=== PATIENT | male | born 1970 | race Caucasian/White ===

== ENCOUNTER 2022-11-11 07:19 | Day surgery (SDC) | payer BC, OTHER ==
[2022-11-11] MEDS ORDERED: Ringers Lactate 1,000 ML IV ONE ×2 (07:47→12:07)
[2022-11-11] MEDS ORDERED: ONDANSETRON 4 MG/2 ML VIAL ONE (09:14)
[2022-11-11] MEDS ORDERED: dexAMETHasone 10 MG/ML VIAL ONE (09:14)
[2022-11-11] MEDS ORDERED: ROCURONIUM 50 MG/5 ML VIAL IV ONE (09:14)
[2022-11-11] MEDS ORDERED: MIDAZOLAM HCL 2 MG/2 ML INJ ONE (09:14)
[2022-11-11] MEDS ORDERED: FENTANYL CITR 100 MCG/2 ML ONE (09:14)
[2022-11-11] MEDS ORDERED: LIDOCAINE 2% MPF 5 ML VIAL ONE (09:14)
[2022-11-11] MEDS ORDERED: propofoL 200 MG/20 ML VIAL IV ONE (09:14)
[2022-11-11] MEDS ORDERED: NA CHLORIDE 0.9% 1,000 ML ONE (09:33)
[2022-11-11] MEDS: OXYMETAZOLINE HCL 0.05% 15ML NAS ONE ×3 (10:03→10:57)
[2022-11-11] MEDS: LIDOCAINE HCL/EPINEPHRINE 20 ML MDV ONE ×3 (10:03→10:57)
[2022-11-11] MEDS ORDERED: BACITRACIN OINTMENT 14 GM TUBE TOP ONE (12:01)
[2022-11-11] MEDS ORDERED: CEFAZOLIN SODIUM 1 GM/VIAL ONE (12:27)
[2022-11-11] MEDS: HYDROMORPHONE HCL 1 MG/ML INJ ONE ×2 (12:58→13:05)
[2022-11-11] MEDS ORDERED: HYDROMORPHONE HCL 1 MG/ML INJ ONE (13:28)
[2022-11-11] MEDS ORDERED: HYDROCODONE/APAP 7.5/325 MG TAB ONE (14:47)
[2022-11-11 15:07] VITALS: BP 141/89; TEMP 97.9; O2SAT 98
--- NOTE | 2022-11-12 13:35 | OP ---
Date of Procedure: 11/11/2022 Surgeon: AURELIA SARABIA Preoperative Diagnoses: 1.Nasal septal deviation. 2.Bilateral inferior turbinate hypertrophy. 3.Chronic rhinitis. Postoperative Diagnoses: 1.Nasal septal deviation. 2.Bilateral inferior turbinate hypertrophy. 3.Chronic rhinitis. Procedures: 1.Bilateral nasal endoscopy. 2.Septoplasty. 3.Bilateral submucosal ablation with radiofrequency Coblation wand. 4.Bilateral ClariFix cryo destruction of posterior nasal nerves. Anesthesia: General endotracheal anesthesia was administered. I also infiltrated approximately 10 t o 12 mL of 1% lidocaine with 1:100,000 epinephrine into the mucosa of bilateral inferior turbinates, uncinate process and anterior face of middle turbinates and bilateral septal mucosa. Afrin-soaked na jamel pledgets were used for vasoconstriction and decongestion. Estimated Blood Loss: Approximately 15 to 20 mL. Findings: Right greater than left nasal septal deviation with moderate superior septal deviation not ed, right caudal septum involving predominantly cartilage in left maxillary crest and vomer deviation , mild to moderate; bilateral inferior turbinate hypertrophy 3/4 and bilateral posterior rhinorrhea. Complications: None. Disposition: Stable. The patient tolerated the procedure well. Indication For Procedure: Patient is a pleasant 52-year-old male who presented to my outpatient clin ic with chronic nasal obstruction secondary to deviated septum and inferior turbinate hypertrophy. H e also complained of chronic postnasal drip and rhinorrhea that has been refractory to decongestion a nd antihistamines. These are indications to bring the patient to the operative suite for the above-m entioned procedures. He understood. All questions were answered. Risks versus benefits and complic ations were explained in detail and a consent form was signed which was placed in the chart. CT scan also demonstrated deviation of the septum and inferior turbinate hypertrophy. Description Of Procedure: Patient was transferred from the preoperative holding area to the operativ e suite by Department of Anesthesia, placed on the operating table supine, sedated and intubated in n ormal fashion. Table was rotated to 180 degrees and a head rest was placed. I infiltrated bilateral intranasal mucosa with 10 to 12 mL of 1% lidocaine with 1:100,000 epinephrine as more specifically b ilateral inferior turbinate mucosa, septal mucosa, and uncinate process and middle turbinate mucosa. The patient was then sterilely prepped and draped. Afrin-soaked nasal pledgets were introduced into the nasal cavity. The pledgets were removed. The endoscope was advanced along the floor of bilateral nasal cavities. We started with the cryo destruction of the posterior nasal nerves by using the [employer] cryo destruc tion device. I inserted to the left side and advanced it to the attachment of the posterior middle t urbinates and lateral nasal wall and I picked 2 spots for cryo destruction and cryo destruction was p erformed 30 seconds at both sites. Then the wand was removed. This was repeated on the right side w hereby I advanced it posteriorly to where the middle turbinate was attached to the lateral nasal wall and I picked 2 spots for cryo destruction. It was held in place at each area for 30 seconds. The w and was then removed and my attention was placed to the septal wall. I made a modified Fernando incis ion with a #15 blade scalpel down to perichondrium and elevated the mucosa off the cartilaginous sept um with a [place] elevator. I then made a crossover incision with a #15 blade scalpel and elevated the right septal mucosa off the obstructive cartilage. Patient had very thin mucosa and he had a cartil aginous step-off to suggest a prior fracture of the septum. The obstructive cartilage and bone were removed with a [place] elevator, scalpel, and Aisha forceps. Once the obstructive pieces were job mechelle, I then reapproximated the septal mucosa with 4-0 plain gut suture in a box like fashion. I then reapproximated the mucosal edges with 4-0 plain gut suture in a continuous running fashion. Next, attention was placed to the inferior turbinates. The mucosa was entered with the Coblation wan d and advanced posteriorly. Submucous pockets were created with the wand and I performed 7 for ablat ion and 3 for coagulation of bilateral inferior turbinates. The wand was removed. Surgifoam was ins erted into bilateral nasal cavities, followed by antibiotic coated Mena splints and the Mena splint s were sutured at the caudal septum with a 2-0 Prolene suture. A mustache dressing was placed. He t olerated the procedure well and will be discharged to home on antibiotic and analgesic medication and will follow up at 10 days or sooner if needed. KD/MODL Voice ID: [id number] Report ID: [id number]
== END 2022-11-11 15:06 | disposition home or self-care (01) ==
LOC: OR 07:19
PROVIDERS: ATTEND Otolaryngology Facial Plastic Surgery
PROC: 095P8ZZ Destruction of Accessory Sinus, Via Natural or Artificial Opening Endoscopic (ICD-10-PCS; 2022-11-11)
PROC: 09SM4ZZ Reposition Nasal Septum, Percutaneous Endoscopic Approach (ICD-10-PCS; 2022-11-11)
PROC: 09BL7ZZ Excision of Nasal Turbinate, Via Natural or Artificial Opening (ICD-10-PCS; principal; 2022-11-11 09:30)
DX: J34.2 Deviated nasal septum (principal); J31.0 Chronic rhinitis; J34.3 Hypertrophy of nasal turbinates
CPT/HCPCS: 88300; C2618; J0690; J1100; J1170; J2001; J2250; J2405; J2704; J3010; J7040; J7120

== ENCOUNTER 2023-09-27 06:32 | Emergency (ER) | payer OTHER ==
[2023-09-27] MEDS ORDERED: ONDANSETRON 4 MG/2 ML VIAL ONE (06:57)
[2023-09-27] MEDS ORDERED: HYDROMORPHONE HCL 1 MG/ML INJ ONE (07:08)
[2023-09-27 07:14] LABS: Urine Bilirubin NEGATIVE (Negative); Urine Blood Negative (Negative); Urine Clarity Clear (Clear); Urine Color Light-Yellow (Yellow); Urine Glucose NEGATIVE (Negative); Urine Ketones NEGATIVE (Negative); Urine Microscopic Reflex YN NO UMIC; Urine Nitrite NEGATIVE (Negative); Urine Protein NEGATIVE (Negative); Urine Urobilinogen Normal (Normal); Urine pH 6.5 (5.0-7.0)
[2023-09-27 07:19] LABS: Absolute Eosinophils 0.2 K/uL (0-0.5); Absolute Lymphocytes (CBC) 2.2 K/uL (0.7-4.9); Absolute Monocytes 0.7 K/uL (0.1-1.3); Absolute Neutrophil 3.2 K/uL (1.8-8.0); Basophils % 0.7 % (0-1.3); Eosinophils % 2.9 % (0-4.4); Hematocrit 40.3 % (39.6-49.0); Hemoglobin 13.8 g/dL (13.6-17.9); Lymphocytes % 34.8 % (15.3-44.8); MCH 29.1 pg (27.0-35.0); MCHC 34.3 g/dL (32.0-36.0); MCV 84.8 fL (80-100); Monocytes % 10.8 % (3.3-12.3); Neutrophils % 50.8 % (41.7-73.7); Nucleated Red Blood Cells % 0.1 % (0-0); Platelets 243 thou/uL (152-406); RBC Red Blood Cell Count 4.75 M/uL (4.33-5.43); Red Cell Distribution Width 13.4 % (12.1-15.2)
[2023-09-27 07:21] LABS: Albumin 3.9 g/dL (3.4-5.0); Albumin/Globulin Ratio 1.4 (1.1-1.8); Anion Gap 4.6 mEq/L (5.0-15.0); Bilirubin Total 0.4 mg/dL (0.2-1.0); Globulin 2.8 g/dL (2.3-3.5); Potassium 3.6 mEq/L (3.5-5.1); Protein, Total 6.7 g/dL (6.4-8.2)
--- NOTE | 2023-09-27 07:47 | RAD REPORT ---
EXAM DESCRIPTION: CTAbdomen Pelvis W Contrast - 09/27/2023 7:37 am CLINICAL HISTORY: ABD PAIN COMPARISON: No comparisons TECHNIQUE: CT of the abdomen and pelvis was performed with IV contrast. All CT scans are performed using dose optimization technique as appropriate and may include automated exposure control or mA/KV adjustment according to patient size. FINDINGS: Lower chest: Fluid in the distal esophagus. Liver: No acute abnormality or suspicious lesions. Biliary: No biliary ductal dilatation. Stomach: No significant focal abnormality. Duodenum: No significant focal abnormality. Pancreas: No significant abnormality. Spleen: No significant abnormality. Adrenal: No suspicious lesions. Kidney/ureter: No hydronephrosis. No renal calculi. Too small to characterize and/or benign appearing renal lesions are noted. Retroperitoneum: No retroperitoneal adenopathy. Vascular: No aneurysm. Bowel: No significant focal abnormality. Peritoneum: No ascites or free air. Fat containing inguinal hernias. Small fat containing umbilical h ernia. Bladder: Grossly unremarkable. Reproductive: No adnexal masses. Bones: No acute fracture. Mild disc height loss L5-S1. Other: n/a IMPRESSION: No acute intra-abdominal or pelvic finding.
--- NOTE | 2023-09-27 07:56 | ER ---
Nurse's Notes [facility] Name: Jamal Ram Jr Age: 53 yrs Sex: Male : 1970 Arrival Date: 09/27/2023 Time: 06:32 Bed 20 Private MD: Diagnosis: Abdominal pain, unspecified Presentation: 09/26 06:41 Chief complaint: Patient states: I have been having abdominal bloating and back pain ha1 for about a week. 06:41 Coronavirus screen: Vaccine status: Patient reports receiving the 2nd dose of the covid ha1 vaccine. Moderna. Ebola Screen: No symptoms or risks identified at this time. Initial Sepsis Screen: Does the patient meet any 2 criteria? No. Patient's initial sepsis screen is negative. Does the patient have a suspected source of infection? No. Patient's initial sepsis screen is negative. Risk Assessment: Do you want to hurt yourself or someone else? Patient reports no desire to harm self or others. Onset of symptoms was September 27, 2023. 06:41 Method Of Arrival: Ambulatory ha1 06:41 Acuity: ELIUD 3 ha1 Triage Assessment: 06:41 General: Appears uncomfortable, Behavior is calm, cooperative. Pain: Complains of pain ha1 in back Pain does not radiate. Pain currently is 7 out of 10 on a pain scale. Quality of pain is described as pressure, throbbing. Neuro: Level of Consciousness is awake, alert, obeys commands, Oriented to person, place, time, situation. Cardiovascular: Capillary refill < 3 seconds Patient's skin is warm and dry. Respiratory: Airway is patent Respiratory effort is even, unlabored, Respiratory pattern is regular, symmetrical. GI: Abdomen is round distended, obese, Bowel sounds present X 4 quads. Reports bloating, nausea. : No signs and/or symptoms were reported regarding the genitourinary system. Derm: Skin is pink, warm \T\ dry. Musculoskeletal: Circulation, motion, and sensation intact. Range of motion: intact in all extremities, Reports pain in back. Historical: - Allergies: 06:55 Codeine; ha1 06:55 Tape; ha1 - PMHx: 06:55 Kidney stone; Asthma; ha1 - PSHx: 06:55 right knee surgery; ha1 - Immunization history:: Adult Immunizations unknown. - Infectious Disease History:: Denies. - Social history:: Smoking status: Patient denies any tobacco usage or history of. Screenin:58 Abuse screen: Denies threats or abuse. Denies injuries from another. Nutritional ha1 screening: No deficits noted. Tuberculosis screening: No symptoms or risk factors identified. 07:15 [facility] ED Fall Risk Assessment (Adult) History of falling in the last 3 months, kc6 including since admission No falls in past 3 months (0 pts) Confusion or Disorientation No (0 pts) Intoxicated or Sedated No (0 pts) Impaired Gait No (0 pts) Mobility Assist Device Used No (0 pt) Altered Elimination No (0 pt) Score/Fall Risk Level 0 - 2 = Low Risk. Assessment: 07:15 General: Appears in no apparent distress. comfortable, well groomed, well developed, kc6 Behavior is calm, cooperative, appropriate for age. Pain: Complains of pain in suprapubic area and right lower quadrant and back Pain currently is 7 out of 10 on a pain scale. at worst was 9 out of 10 on a pain scale. Neuro: Level of Consciousness is awake, alert, obeys commands, Oriented to person, place, time, situation, Appropriate for age. Cardiovascular: Denies chest pain, Capillary refill < 3 seconds. Respiratory: Airway is patent Trachea midline Respiratory effort is even, unlabored, Respiratory pattern is regular, symmetrical, Denies shortness of breath. GI: Abdomen is round Bowel sounds present X 4 quads. Abd is soft X 4 quads Abdomen is tender to palpation in suprapubic area and right lower quadrant Reports lower abdominal pain, Patient currently denies diarrhea, nausea, vomiting. : No signs and/or symptoms were reported regarding the genitourinary system. Urine is clear. EENT: No signs and/or symptoms were reported regarding the EENT system. Derm: No signs and/or symptoms reported regarding the dermatologic system. Skin is intact, is healthy with good turgor, Skin is pink, warm \T\ dry. Musculoskeletal: No signs and/or symptoms reported regarding the musculoskeletal system. Circulation, motion, and sensation intact. Capillary refill < 3 seconds, Range of motion: intact in all extremities. 08:15 Reassessment: Patient appears in no apparent distress at this time. No changes from kc6 previously documented assessment. Patient and/or family updated on plan of care and expected duration. Pain level reassessed. Patient is alert, oriented x 3, equal unlabored respirations, skin warm/dry/pink. Patient states feeling better. Patient states symptoms have improved. Vital Signs: 06:41 BP 166 / 92; Pulse 68; Resp 17 S; Temp 98.2(T); Pulse Ox 96% on R/A; Weight 108.86 kg; ha1 Height 5 ft. 8 in. ; 07:29 BP 154 / 101; Pulse 66; Resp 16 S; Pulse Ox 92% on R/A; kc6 06:41 Body Mass Index 36.49 (108.86 kg, 172.72 cm) ha1 ED Course: 06:34 Patient arrived in ED. mr 06:36 Yung Mccrary MD is Attending Physician. sp4 06:41 Patient has correct armband on for positive identification. Bed in low position. Call ha1 light in reach. Side rails up X 1. 06:55 Triage completed. ha1 06:59 Attending Physician role handed off by Yung Mccrary MD sp3 06:59 Judy Donahue MD is Attending Physician. sp3 06:59 CBC with Diff Sent. ha1 06:59 Inserted saline lock: 20 gauge in right antecubital area, using aseptic technique. oe Blood collected. 07:00 CMP Sent. ha1 07:00 Lipase Sent. ha1 07:00 Report received from Arielle Tobar RN. kc6 07:00 Pulse ox on. NIBP on. Warm blanket given. Pillow given. kc6 07:00 Arm band placed on. kc6 07:06 Brissa Meyer, DARNELL is Primary Nurse. kc6 07:26 Door closed. Noise minimized. Lights dimmed. kc6 07:37 CT Abd/Pelvis - IV Contrast Only In Process Unspecified. EDMS 08:32 No provider procedures requiring assistance completed. IV discontinued, intact, kc6 bleeding controlled, No redness/swelling at site. Pressure dressing applied. 08:32 Provided Education on: do not drive or operate heavy machinery for x4hrs. kc6 Administered Medications: 07:15 Drug: Ondansetron IVP 4 mg IVP once; over 2 minutes Route: IVP; Site: right antecubital;kc6 07:26 Follow up: Response: No adverse reaction kc6 07:15 Drug: HYDROmorphone IVP 1 mg IVP once Route: IVP; Site: right antecubital; kc6 07:25 Follow up: Response: No adverse reaction; Pain is decreased; RASS: Alert and Calm (0) kc6 Medication: 08:32 VIS not applicable for this client. kc6 Outcome: 07:56 Discharge ordered by . sp3 08:32 Discharged to home ambulatory, kc6 08:32 Condition: improved 08:32 Discharge instructions given to patient, Instructed on discharge instructions, follow up and referral plans. no driving heavy equipment, Demonstrated understanding of instructions, follow-up care, 08:33 Patient left the ED. kc6 Signatures: Dispatcher [employer] EDMS Sara Donohue, Vincent Reg mr Valladares, Judy Guy MD MD sp3 Arielle Tobar RN RN [email or web address] Brissa Meyer RN RN kc6 Yung Mccrary MD MD sp4
--- NOTE | 2023-09-27 07:56 | EDPHYS ---
Physician Documentation [facility] Name: Jamal Ram Jr Age: 53 yrs Sex: Male : 1970 Arrival Date: 09/27/2023 Time: 06:32 Bed 20 Private MD: ED Physician Judy Donahue HPI: 09/26 06:36 This 53 yrs old Male presents to ER via Unassigned with complaints of sp3 Abdominal Swelling, Abdominal Pain, Back Pain. 06:36 53-year-old male with a history of kidney stones and asthma presents with low back pain sp3 and anterior abdominal pain and swelling acute on chronic for approximately 10 days. Patient states symptoms have been worse over the last 2 days. He denies any trauma, muscle strain or other strenuous exercise. He also denies headache, fever, URI symptoms, chest pain, shortness of breath, back pain, epigastric pain, syncope, near syncope, neurological deficit, rash, travel history, known sick contacts, dysuria, gross hematuria, any other signs or symptoms on ROS at this time. He denies any abdominal surgeries. No family history of aortic aneurysm or dissection reported.. Historical: - Allergies: 06:55 Codeine; ha1 06:55 Tape; ha1 - PMHx: 06:55 Kidney stone; Asthma; ha1 - PSHx: 06:55 right knee surgery; ha1 - Immunization history:: Adult Immunizations unknown. - Infectious Disease History:: Denies. - Social history:: Smoking status: Patient denies any tobacco usage or history of. ROS: 07:22 Constitutional: Negative for fever, chills, and weight loss, Eyes: Negative for injury, sp3 pain, redness, and discharge, ENT: Negative for injury, pain, and discharge, Neck: Negative for injury, pain, and swelling, Cardiovascular: Negative for chest pain, palpitations, and edema, Respiratory: Negative for shortness of breath, cough, wheezing, and pleuritic chest pain, : Negative for injury, bleeding, discharge, and swelling, MS/Extremity: Negative for injury and deformity, Skin: Negative for injury, rash, and discoloration, Neuro: Negative for headache, weakness, numbness, tingling, and seizure, Psych: Negative for depression, anxiety, suicide ideation, homicidal ideation, and hallucinations, Allergy/Immunology: Negative for hives, rash, and allergies, Endocrine: Negative for neck swelling, polydipsia, polyuria, polyphagia, and marked weight changes, Hematologic/Lymphatic: Negative for swollen nodes, abnormal bleeding, and unusual bruising, 07:22 All other systems are negative, Exam: 07:22 Constitutional: This is a well developed, well nourished patient who is awake, alert, sp3 and in no acute distress. Head/Face: Normocephalic, atraumatic. Eyes: Pupils equal round and reactive to light, extra-ocular motions intact. Lids and lashes normal. Conjunctiva and sclera are non-icteric and not injected. Cornea within normal limits. Periorbital areas with no swelling, redness, or edema. ENT: Nares patent. No nasal discharge, no septal abnormalities noted. External auditory canals are clear. Oropharynx with no redness, swelling, or masses, exudates, or evidence of obstruction, uvula midline. Mucous membranes moist. Neck: Trachea midline, no thyromegaly or masses palpated, and no cervical lymphadenopathy. Supple, full range of motion without nuchal rigidity, or vertebral point tenderness. No Meningismus. Chest/axilla: Normal chest wall appearance and motion. Nontender with no deformity. No lesions are appreciated. Cardiovascular: Regular rate and rhythm with a normal S1 and S2. No gallops, murmurs, or rubs. Normal PMI, no JVD. No pulse deficits. Respiratory: Lungs have equal breath sounds bilaterally, clear to auscultation and percussion. No rales, rhonchi or wheezes noted. No increased work of breathing, no retractions or nasal flaring. Skin: Warm, dry with normal turgor. Normal color with no rashes, no lesions, and no evidence of cellulitis. MS/ Extremity: Pulses equal, no cyanosis. Neurovascular intact. Full, normal range of motion. Neuro: Awake and alert, GCS 15, oriented to person, place, time, and situation. Cranial nerves II-XII grossly intact. Motor strength 5/5 in all extremities. Sensory grossly intact. Cerebellar exam normal. Normal gait. Psych: Awake, alert, with orientation to person, place and time. Behavior, mood, and affect are within normal limits. 07:22 Abdomen/GI: Diffuse mild lower abdominal pain to palpation without peritoneal signs, rebound or guarding. No pain to palpation along the musculature or spine of the back. Nonsurgical abdomen., Vital Signs: 06:41 BP 166 / 92; Pulse 68; Resp 17 S; Temp 98.2(T); Pulse Ox 96% on R/A; Weight 108.86 kg; ha1 Height 5 ft. 8 in. ; 07:29 BP 154 / 101; Pulse 66; Resp 16 S; Pulse Ox 92% on R/A; kc6 06:41 Body Mass Index 36.49 (108.86 kg, 172.72 cm) ha1 MDM: 06:37 Patient medically screened. sp4 07:23 Data reviewed: vital signs, nurses notes, lab test result(s), radiologic studies. ED sp3 course: 53-year-old male with PMH above now with lower abdominal pain and low back pain. Differential diagnosis is broad and includes UTI/pyelonephritis spectrum, kidney stone, appendicitis, colitis, aortic pathology, musculoskeletal, among others. I am not highly suspicious of sepsis and/or shock. Workup will include CT scan of the abdomen pelvis, laboratory values, UA and general supportive care. Dilaudid and Zofran for pain control with disposition pending workup and patient course.. 07:55 ED course: Full workup negative including CT. Patient is improved. I have advised him sp3 to follow-up with his orthopedic doctor and his PCP for potential low back MRI and further evaluation of his musculoskeletal system. Patient is already on meloxicam at home. We will safely discharge patient home at this time.. 09/26 06:37 Order name: CBC with Diff; Complete Time: 07:24 sp4 09/26 06:37 Order name: CMP; Complete Time: 07:24 sp4 09/26 06:37 Order name: Lipase; Complete Time: 07:24 sp4 09/26 06:37 Order name: Urinalysis w/ reflexes; Complete Time: 07:24 sp4 09/26 07:05 Order name: CT Abd/Pelvis - IV Contrast Only; Complete Time: 07:48 sp3 09/26 06:37 Order name: IV Saline Lock; Complete Time: 06:59 sp4 09/26 06:37 Order name: Labs collected and sent; Complete Time: 06:59 sp4 Administered Medications: 07:15 Drug: Ondansetron IVP 4 mg IVP once; over 2 minutes Route: IVP; Site: right antecubital;kc6 07:26 Follow up: Response: No adverse reaction kc6 07:15 Drug: HYDROmorphone IVP 1 mg IVP once Route: IVP; Site: right antecubital; kc6 07:25 Follow up: Response: No adverse reaction; Pain is decreased; RASS: Alert and Calm (0) kc6 Disposition Summary: 09/27/23 07:56 Discharge Ordered Notes: Location: Home sp3 Condition: Stable sp3 Diagnosis - Abdominal pain, unspecified sp3 Followup: sp3 - With: Private Physician - When: Upon discharge from the Emergency Department - Reason: Continuance of care Discharge Instructions: - Discharge Summary Sheet sp3 - Abdominal Pain, Adult sp3 Forms: - Medication Reconciliation Form sp3 - Antibiotic Education sp3 - Prescription Opioid Use sp3 - Patient Portal Instructions sp3 - Leadership Thank You Letter sp3 Signatures: Dispatcher [employer] Judy Natarajan MD MD sp3 Arielle Tobar RN RN ha1 Brissa Meyer RN RN kc6 Yung Mccrary MD MD sp4 Corrections: (The following items were deleted from the chart) 06:37 06:37 CBC+H.LAB.BRZ ordered. EDMS EDMS 06:37 06:37 COMPREHENSIVE METABOLIC PANEL+C.LAB.BRZ ordered. EDMS EDMS 06:37 06:37 LIPASE+C.LAB.BRZ ordered. EDMS EDMS 06:37 06:37 Urinalysis+U.LAB.BRZ ordered. EDMS EDMS 07:06 07:06 Abdomen Pelvis W Con+CT.RAD.BRZ ordered. EDMS EDMS 07:22 06:36 This 53 yrs old Male presents to ER via Unassigned with complaints of sp3 Abdominal Swelling, Abdominal Pain, Back Pain. sp4
[2023-09-27 08:47] VITALS: BP 154/101; TEMP 98.2; O2SAT 92
== END 2023-09-27 08:33 | disposition home or self-care (01) ==
LOC: ER 06:32
DX: R10.30 Lower abdominal pain, unspecified (principal); Z87.442 Personal history of urinary calculi
CPT/HCPCS: 85025; 36415; 81003; 83690; 80053; 74177; Q9967; J1170; J2405